=== PATIENT | male | born 1950 | race African-American/Black ===

== ENCOUNTER 2024-01-29 07:48 | Inpatient (IN) | payer OTHER, MEDICARE ==
[~2024-01-29] VITALS: Ht 177.8 cm; Wt 86.2 kg
[2024-01-29 07:57] VITALS: O2SAT 96
[2024-01-29] MEDS: SODIUM CHLORIDE 0.9% 1,000 ML IV ONE (08:54)
[2024-01-29 09:15] LABS: BASOPHILS % 0.9 % (0.0-2.0); EOSINOPHILS % 4.2 % (0.0-5.0); HEMATOCRIT. 38.4 % (42.0-52.0); HEMOGLOBIN. 12.7 g/dL (14.0-18.0); LYMPHOCYTES % 39.9 % (20.0-50.0); MEAN CORPUSCULAR HEMOGLOBIN 29.5 pg (28.0-32.0); MEAN CORPUSCULAR HGB CONC 33.1 g/dL (31.0-37.0); MONOCYTES % 11.3 % (2.0-8.0); NEUTROPHILS % 43.7 % (40.0-76.0); PLATELET 161 x1000/uL (130-400); RED BLOOD CELL COUNT 4.31 mill/uL (4.7-6.1); RED CELL DISTRIBUTION WIDTH 15.1 % (11.6-14.6)
[2024-01-29 09:22] LABS: CHLORIDE 109 mEq/L (98-107); POTASSIUM 3.4 mEq/L (3.5-5.1); SODIUM 141 mEq/L (136-145)
[2024-01-29 09:23] LABS: CARBON DIOXIDE 29 mEq/L (21-32)
[2024-01-29 09:28] LABS: CREATININE 1.1 mg/dL (0.6-1.3); GLUCOSE 115 mg/dL (70-105); UREA NITROGEN BLOOD 16 mg/dL (9-23)
[2024-01-29 09:30] LABS: ALANINE AMINOTRANSFERASE 21 IU/L (10-49); ALBUMIN 4.2 g/dL (3.2-4.8); ASPARTATE AMINOTRANSFERASE 28 IU/L (<34); BILIRUBIN DIRECT 0.1 mg/dL (<=3.0); BILIRUBIN TOTAL 0.5 mg/dL (0.1-1.0)
[2024-01-29 09:31] LABS: PROTEIN TOTAL 6.9 g/dL (6.0-8.3)
[2024-01-29 09:51] LABS: TROPONIN I HIGH SENSITIVITY 268 ng/L (3.0-53)
[2024-01-29] MEDS: ASPIRIN 325MG EC TABLET PO ONE (10:52)
[2024-01-29 12:44] LABS: TROPONIN I HIGH SENSITIVITY 258 ng/L (3.0-53)
[2024-01-29] MEDS ORDERED: GUAIFENESIN 200MG/10ML SUGAR FREE UDC PO PRN (13:45)
[2024-01-29] MEDS ORDERED: ONDANSETRON HCL 4MG/2ML INJ IV PRN (13:45)
[2024-01-29] MEDS ORDERED: DOCUSATE SODIUM 100MG CAPSULE PO PRN (13:45)
[2024-01-29] MEDS ORDERED: TRAMADOL 50MG TABLET PO PRN (13:45)
[2024-01-29] MEDS ORDERED: ACETAMINOPHEN 325MG TABLET PO PRN (13:45)
[2024-01-29] MEDS: SODIUM CHLORIDE 0.9% 1,000 ML IV SCH (14:01)
[2024-01-29] MEDS: ENOXAPARIN 40MG/0.4ML SYR SUBCUT SCH (14:04)
[2024-01-29 16:00] VITALS: BP 161/70; PULSE 51; RESP 18; TEMP 97.8
[2024-01-29 19:00] VITALS: BP 165/95; PULSE 75; RESP 18; TEMP 98.2
[2024-01-29 20:00] VITALS: BP 143/73; PULSE 43; RESP 18; TEMP 97.5
[2024-01-29] MEDS ORDERED: TAMS-11 PO (20:26)
[2024-01-29] MEDS ORDERED: TIMO5DRO40 (20:26)
[2024-01-29] MEDS ORDERED: LATA2.5D14 EACHEYE (20:26)
[2024-01-30] VITALS: BP 134/82; PULSE 65; RESP 19; TEMP 98.5
[2024-01-30 04:00] VITALS: BP 145/72; PULSE 47; RESP 18; TEMP 98
[2024-01-30 06:35] LABS: EOSINOPHILS % 5.3 % (0.0-5.0); HEMATOCRIT. 39.4 % (42.0-52.0); HEMOGLOBIN. 13.2 g/dL (14.0-18.0); LYMPHOCYTES % 41.3 % (20.0-50.0); MEAN CORPUSCULAR HEMOGLOBIN 29.7 pg (28.0-32.0); MEAN CORPUSCULAR HGB CONC 33.6 g/dL (31.0-37.0); MEAN CORPUSCULAR VOLUME 88.4 fL (80.0-94.0); MEAN PLATELET VOLUME 10.2 fl (7.4-10.4); MONOCYTES % 9.4 % (2.0-8.0); PLATELET 184 x1000/uL (130-400); RED BLOOD CELL COUNT 4.45 mill/uL (4.7-6.1); RED CELL DISTRIBUTION WIDTH 14.7 % (11.6-14.6); WHITE BLOOD COUNT 5.9 x1000/uL (4.5-11.0)
[2024-01-30 08:00] VITALS: BP 144/86; PULSE 50; RESP 16; TEMP 97.8
[2024-01-30] MEDS: ASPIRIN 81MG EC TABLET PO SCH (10:02)
[2024-01-30 12:00] VITALS: BP 143/75; PULSE 54; RESP 16; TEMP 98.5
[2024-01-30 16:00] VITALS: BP 143/77; PULSE 56; RESP 16; TEMP 97.1
[2024-01-30 17:41] LABS: CHLORIDE 107 mEq/L (98-107); POTASSIUM 3.6 mEq/L (3.5-5.1); SODIUM 138 mEq/L (136-145)
[2024-01-30 17:42] LABS: CALCIUM 8.7 mg/dL (8.7-10.4); CARBON DIOXIDE 25 mEq/L (21-32)
[2024-01-30 17:47] LABS: CREATININE 0.9 mg/dL (0.6-1.3); GLUCOSE 111 mg/dL (70-105); UREA NITROGEN BLOOD 10 mg/dL (9-23)
[2024-01-30 18:00] LABS: TROPONIN I HIGH SENSITIVITY 221 ng/L (3.0-53)
[2024-01-30 20:00] VITALS: BP 160/71; PULSE 64; RESP 18; TEMP 97.1
[2024-01-30] MEDS ORDERED: NALOXONE HCL 0.4MG/ML VIAL IV PRN (20:15)
[2024-01-30] MEDS: ATORVASTATIN CALCIUM 40MG TABLET PO SCH (20:50)
[2024-01-31] VITALS: BP 152/74; PULSE 63; RESP 18; TEMP 98
[2024-01-31 04:00] VITALS: BP 158/79; PULSE 58; RESP 18; TEMP 98.3
[2024-01-31 08:00] VITALS: BP 166/76; PULSE 47; RESP 17; TEMP 96.9
[2024-01-31 12:00] VITALS: BP 142/72; PULSE 58; RESP 17; TEMP 96.6
== END 2024-01-31 18:05 | disposition short-term general hospital (02) | DRG 73 ==
LOC: ER 07:48 → 5WST 11:08 → EDBEDREQ 11:12 → EDBEDREQTM 11:12 → 7EST 17:37
PROVIDERS: ADMIT Hospitalist; ATTEND Hospitalist
DX: G90.8 Other disorders of autonomic nervous system (principal); I21.4 Non-ST elevation (NSTEMI) myocardial infarction; R00.1 Bradycardia, unspecified; E87.6 Hypokalemia; E78.5 Hyperlipidemia, unspecified; I10 Essential (primary) hypertension; I25.10 Atherosclerotic heart disease of native coronary artery without angina pectoris; R79.89 Other specified abnormal findings of blood chemistry
CPT/HCPCS: 36415; 71045; 80048; 80061; 80076; 83605; 83880; 84484; 85025; 93005; 93306; 93970; 99291; J1650; J7030